=== PATIENT | female | born 1995 | race Caucasian/White ===

== ENCOUNTER 2020-01-16 07:55 | Emergency (ER) | payer OTHER ==
[~2020-01-16] VITALS: Ht 170.2 cm; Wt 81.8 kg
[2020-01-16] MEDS ORDERED: ACET-66 PO (07:59)
[2020-01-16] MEDS ORDERED: ONDANSETRON HCL 4 MG/2 ML VIAL IVP ONE (08:30)
[2020-01-16] MEDS ORDERED: SODIUM CHLORIDE 0.9% 1,000 ML IV ONE ×2 (08:30→09:30)
[2020-01-16 09:02] LABS: BASOPHILS % (AUTO) 0.3 % (0.0-2.0); EOSINOPHILS % (AUTO) 0 % (1.0-6.0); HEMATOCRIT 39.7 % (36-46); HEMOGLOBIN 13.5 g/dL (12.0-16.0); LYMPHOCYTES % (AUTO) 6.4 % (22.0-44.0); MEAN CORPUSCULAR HEMOGLOBIN 29.8 pg (26.0-34.0); MEAN CORPUSCULAR VOLUME 88 fL (80-100); MONOCYTES # (AUTO) 1.5 K/uL (0.1-1.0); MONOCYTES % (AUTO) 9.2 % (2.0-9.0); NEUTROPHILS # (AUTO) 13.3 K/uL (1.8-7.7); NEUTROPHILS % (AUTO) 84.1 % (40.0-70.0); PLATELET COUNT (AUTO) 364 K/uL (150-450); RED BLOOD CELL COUNT(AUTO) 4.52 MIL/uL (4.00-5.20); RED CELL DISTRIBUTION WIDTH 12.8 % (11.5-14.5)
[2020-01-16 09:11] LABS: ANION GAP 9 mmol/L (8-16); CALCIUM, TOTAL 9.6 mg/dL (8.8-10.5); CARBON DIOXIDE 25 mmol/L (22-29); CHLORIDE 100 mmol/L (98-107); CREATININE 0.89 mg/dL (0.60-1.30); GLOMERULAR FILTR. RATE CALC > 60 mL/min (>60); GLUCOSE,RANDOM 117 mg/dL (70-110); POTASSIUM 3.4 mmol/L (3.5-5.1); SODIUM SERUM 134 mmol/L (136-145); UREA NITROGEN, BLOOD 7 mg/dL (7-18)
[2020-01-16 09:13] LABS: PROTHROMBIN TIME 10.5 SEC (9.4-11.6)
[2020-01-16 09:19] LABS: LACTIC ACID 0.5 mmol/L (0.4-2.0)
[2020-01-16 09:23] LABS: ALANINE AMINOTRANSFERASE 34 U/L (12-78); ALKALINE PHOSPHATASE 73 U/L (46-116); ASPARTATE AMINOTRANSFERASE 19 U/L (15-37); BILIRUBIN,TOTAL 0.9 mg/dL (0.1-1.0); HCG,QUANTITATIVE 1 mIU/mL (0-6); LIPASE 38 U/L (73-393); TOTAL PROTEIN, SERUM 8.3 g/dL (6.4-8.2)
[2020-01-16] MEDS ORDERED: SODIUM CHLORIDE 0.9% 100 ML ONE (09:31)
[2020-01-16] MEDS ORDERED: IOVERSOL 320 MG/ML 100 ML VIAL ONE (09:31)
[2020-01-16] MEDS ORDERED: METOCLOPRAMIDE HCL 5 MG/ML 2 ML VIAL IVP ONE (11:00)
[2020-01-16] MEDS ORDERED: KETOROLAC TROMETHAMINE 30 MG/ML VIAL IVP ONE (11:00)
[2020-01-16 11:01] LABS: APPEARANCE,URINE CLEAR (CLEAR); BILIRUBIN,URINE NEGATIVE (NEGATIVE); GLUCOSE, URINE (UA) NEGATIVE (NEGATIVE); KETONES,URINE 15 mg/dL (NEGATIVE); LEUKOCYTE ESTERASE ,URINE SMALL (NEGATIVE); NITRATE,URINE POSITIVE (NEGATIVE); OCCULT BLOOD,URINE TRACE (NEGATIVE); PH,URINE 5.5 (5.0-8.0); PROTEIN,URINE POS 1+ (NEGATIVE)
[2020-01-16 11:09] LABS: BACTERIA,URINE Moderate /HPF (None Seen)
[2020-01-16 11:10] LABS: RBC,URINE 0-2 /HPF (0-2); SQUAMOUS EPITHELIAL CELL,UR Few /LPF (None Seen)
[2020-01-16 11:25] VITALS: BP 119/80
[2020-01-16] MEDS ORDERED: MetroNIDAZOLE 250 MG TABLET PO ONE (11:30)
[2020-01-16] MEDS ORDERED: CIPROFLOXACIN HCL 250 MG TABLET PO ONE (11:30)
== END 2020-01-16 11:46 | disposition home or self-care (01) ==
LOC: EMS 08:07
DX: N12 Tubulo-interstitial nephritis, not specified as acute or chronic (principal); F17.210 Nicotine dependence, cigarettes, uncomplicated
CPT/HCPCS: 36415; 74177; 80053; 81001; 83605; 83690; 84702; 85025; 85610; 87077; 87086; 87186; 93005; 96361; 96374; 96375; 99284; J1885; J2405; J2765; J7030; J7050; Q9967

== ENCOUNTER 2021-08-26 09:41 | Emergency (ER) | payer MEDICAID, OTHER ==
[~2021-08-26] VITALS: Ht 172.7 cm; Wt 91.0 kg
[~2021-08-26 09:41] MED LIST: ACET-3385 PO
[2021-08-26] MEDS ORDERED: ACETAMINOPHEN/CODEINE 300-30 MG TABLET PO ONE (11:00)
[2021-08-26] MEDS ORDERED: AMOX TR/POT CLAV 875 MG/125 MG TABLET PO ONE (11:00)
[2021-08-26 11:52] VITALS: BP 138/80
[2021-08-26] MEDS ORDERED: ACET-2080 PO (11:52)
[2021-08-26] MEDS ORDERED: AMOX1TAB16 PO (11:52)
== END 2021-08-26 12:21 | disposition home or self-care (01) ==
LOC: EMS 09:41
DX: K05.20 Aggressive periodontitis, unspecified (principal); F17.210 Nicotine dependence, cigarettes, uncomplicated
CPT/HCPCS: 99283

== ENCOUNTER 2023-02-10 16:56 | Emergency (ER) | payer SELFPAY ==
[~2023-02-10] VITALS: Ht 172.7 cm; Wt 86.4 kg
[~2023-02-10 16:56] MED LIST changes: +ACET-2080 PO; +AMOX1TAB16 PO
[2023-02-10] MEDS ORDERED: CRAN1CAP5 PO (17:05)
[2023-02-10 18:06] LABS: BASOPHILS % (AUTO) 0.3 % (0.0-2.0); EOSINOPHILS % (AUTO) 0.2 % (1.0-6.0); HEMATOCRIT 39.6 % (36-46); LYMPHOCYTES # (AUTO) 2.8 K/uL (1.0-4.8); LYMPHOCYTES % (AUTO) 19.9 % (22.0-44.0); MEAN CORPUSCULAR HEMOGLOBIN 28.4 pg (26.0-34.0); MEAN CORPUSCULAR HGB CONC 32.7 G/dL (31.0-37.0); MEAN CORPUSCULAR VOLUME 87 fL (80-100); MONOCYTES # (AUTO) 1.5 K/uL (0.1-1.0); MONOCYTES % (AUTO) 10.9 % (2.0-9.0); NEUTROPHILS # (AUTO) 9.7 K/uL (1.8-7.7); NEUTROPHILS % (AUTO) 68.7 % (40.0-70.0); PLATELET COUNT (AUTO) 318 K/uL (150-450); RED BLOOD CELL COUNT(AUTO) 4.57 MIL/uL (4.00-5.20); RED CELL DISTRIBUTION WIDTH 13.3 % (11.5-14.5); WHITE BLOOD COUNT (AUTO) 14.2 K/uL (4.5-11.0)
[2023-02-10 18:22] LABS: ANION GAP 8 mmol/L (8-16); CALCIUM, TOTAL 9.3 mg/dL (8.8-10.5); CARBON DIOXIDE 29 mmol/L (22-29); CHLORIDE 97 mmol/L (98-107); CREATININE 0.94 mg/dL (0.60-1.30); GLOMERULAR FILTR. RATE CALC > 60 mL/min (>60); GLUCOSE,RANDOM 101 mg/dL (70-110); POTASSIUM 3.6 mmol/L (3.5-5.1); SODIUM SERUM 134 mmol/L (136-145); UREA NITROGEN, BLOOD 8 mg/dL (7-18)
[2023-02-10 18:28] LABS: ALANINE AMINOTRANSFERASE 42 U/L (12-78); ALBUMIN 3.5 g/dL (3.4-5.0); ALKALINE PHOSPHATASE 78 U/L (46-116); ASPARTATE AMINOTRANSFERASE 18 U/L (15-37); BILIRUBIN,TOTAL 0.4 mg/dL (0.1-1.0); TOTAL PROTEIN, SERUM 7.7 g/dL (6.4-8.2)
[2023-02-10] MEDS ORDERED: SODIUM CHLORIDE 0.9% 1,000 ML IV ONE (18:30)
[2023-02-10 18:58] LABS: APPEARANCE,URINE CLEAR (CLEAR); BILIRUBIN,URINE NEGATIVE (NEGATIVE); COLOR,URINE LIGHT YELLOW (YELLOW); GLUCOSE, URINE (UA) NEGATIVE (NEGATIVE); KETONES,URINE 40-60 mg/dL (NEGATIVE); LEUKOCYTE ESTERASE ,URINE SMALL (NEGATIVE); NITRATE,URINE NEGATIVE (NEGATIVE); OCCULT BLOOD,URINE NEGATIVE (NEGATIVE); PH,URINE 5.5 (5.0-8.0); PROTEIN,URINE TRACE mg/dL (NEGATIVE); SPECIFIC GRAVITIY, URINE 1.012 (1.003-1.030); UROBILINOGEN,URINE <=1.0 mg/dL (<=1.0)
[2023-02-10] MEDS ORDERED: ACETAMINOPHEN 325 MG TABLET PO ONE (19:15)
[2023-02-10 19:19] LABS: BACTERIA,URINE Few /HPF (None Seen); RBC,URINE None Seen /HPF (0-2); SQUAMOUS EPITHELIAL CELL,UR Moderate /LPF (None Seen)
[2023-02-10] MEDS ORDERED: CefTRIAXone 1 GM/DEXTROSE 50 ML IV ONE (20:00)
[2023-02-10 21:10] VITALS: BP 121/64; PULSE 97; RESP 18; TEMP 99.4
[2023-02-10] MEDS ORDERED: SULF-261 PO (21:13)
[2023-02-10] MEDS ORDERED: PHEN-674 PO (21:13)
== END 2023-02-10 21:23 | disposition home or self-care (01) ==
LOC: EMS 16:56
DX: N39.0 Urinary tract infection, site not specified (principal); F17.210 Nicotine dependence, cigarettes, uncomplicated
CPT/HCPCS: 99285; 74176; 96365; 96361; 80053; 81001; 84703; 85025; 36415; 87086; 87186; J0696

== ENCOUNTER 2025-03-17 08:01 | Emergency (ER) | payer BC, MEDICARE ==
[~2025-03-17] VITALS: Ht 170.2 cm; Wt 93.2 kg
[~2025-03-17 08:01] MED LIST changes: -ACET-3385 PO; -AMOX1TAB16 PO; +CRAN1CAP5 PO; +PHEN-674 PO; +SULF1TAB94 PO
[2025-03-17 08:05] VITALS: TEMP 98.1
[2025-03-17 10:05] LABS: PLATELET COUNT (AUTO) 318 K/uL (150-450); RED BLOOD CELL COUNT(AUTO) 4.76 MIL/uL (4.00-5.20); RED CELL DISTRIBUTION WIDTH 12.8 % (11.5-14.5); WHITE BLOOD COUNT (AUTO) 8.4 K/uL (4.5-11.0)
[2025-03-17 10:11] LABS: CALCIUM, TOTAL 8.5 mg/dL (8.8-10.5); CREATININE 0.67 mg/dL (0.60-1.30); GLOMERULAR FILTR. RATE CALC > 60 mL/min (>60); GLUCOSE,RANDOM 88 mg/dL (70-110); SODIUM SERUM 142 mmol/L (136-145); UREA NITROGEN, BLOOD 9 mg/dL (7-18)
[2025-03-17 11:41] LABS: APPEARANCE,URINE CLEAR (CLEAR); GLUCOSE, URINE (UA) NEGATIVE (NEGATIVE); LEUKOCYTE ESTERASE ,URINE NEGATIVE (NEGATIVE); NITRATE,URINE NEGATIVE (NEGATIVE); OCCULT BLOOD,URINE NEGATIVE (NEGATIVE); SPECIFIC GRAVITIY, URINE 1.022 (1.003-1.030)
[2025-03-17 11:52] LABS: SQUAMOUS EPITHELIAL CELL,UR Few /LPF (None Seen)
[2025-03-17] MEDS: KETOROLAC TROMETHAMINE 60 MG/2 ML VIAL IM ONE (12:52)
[2025-03-17] MEDS ORDERED: IBUP-1492 PO (13:10)
[2025-03-17 13:13] VITALS: BP 120/90; PULSE 72; RESP 17; O2SAT 98
== END 2025-03-17 13:24 | disposition home or self-care (01) ==
LOC: EMS 08:01
DX: K62.89 Other specified diseases of anus and rectum (principal); F17.210 Nicotine dependence, cigarettes, uncomplicated; N89.8 Other specified noninflammatory disorders of vagina; Z79.899 Other long term (current) drug therapy
CPT/HCPCS: 99284; 80048; 81001; 84702; 85025; 36415; 72170; 96372; J1885